=== PATIENT | female | born 1955 | race Caucasian/White ===

== ENCOUNTER 2016-03-23 02:59 | Emergency (ER) | payer MEDICARE ==
[2016-03-23 02:59] VITALS: BMI 31.7
[2016-03-23 03:27] VITALS: BP 119/57; PULSE 82; TEMP 97.9
[2016-03-23 04:29] LABS: LEUKOCYTES/URINE 2+ (NEGATIVE); NITRITE/URINE POS (NEGATIVE); RBC/URINE 0-2 (0-5); URINE OCCULT BLOOD NEG (NEG/TRACE); WBC/URINE 20-30 (0-5)
--- NOTE | 2016-03-23 04:49 | EDPRACDOC ---
- General Information Chief Complaint: Abdominal Pain Stated Complaint: LOWER LT ABD PAIN Time Seen by Provider: 03/23/16 04:49 Information Source: Patient, Family Mode Of Arrival: Car Home Medications: Home Medications Mesalamine [Lialda] 2.4 gm PO BID 02/28/15 Zolpidem Tartrate [Ambien] 10 mg PO HS PRN 02/28/15 Lorazepam 1 mg PO TID 01/03/16 Cefdinir [Omnicef] 300 mg PO BID #20 cap 03/23/16 Furosemide [Lasix] 20 mg PO DAILY 03/23/16 Pravastatin [Pravachol] 80 mg PO HS 03/23/16 Sertraline HCl 150 mg PO DAILY 03/23/16 Allergies/Adverse Reactions: Allergies Allergy/AdvReac Type Severity Reaction Status Date / Time acetaminophen [From Percocet] Allergy Confusion Verified 03/23/16 03:27 codeine Allergy Anaphylaxis Verified 03/23/16 03:27 * oxycodone [From Percocet] Allergy Confusion Verified 03/23/16 03:27 - History of Present Illness Onset: chronic HPI: LLQ pain x months, is kitty tonight requesting answers for why she is hurting, and has ongoing loose stools. She is followed by GI, has had endoscopy, she is followed by PCP has had xrays, is followed by urology has had cystoscopy, folowed by [employer] with US and no apparent etiology. pain is sharp, constant. no F/C. no N/V. She does have dysuria x few days. Pain Severity: Moderate Pain Radiation: Reports: No Radiation : No Female Abdominal History: Reports: UTI Oral Intake: Normal Urinary Output: Normal ED Past Medical History - History Reviewed Yes Nurses notes reviewed and agree except as marked - Patient Medical History Neurological History: Comment Only: Multiple Sclerosis (2009) Psychological History: Denies: Depression Surgical History: Denies: Hysterectomy - Social Medical History Smoking Status: Never smoker EDM Review of Systems - Review of Systems ROS Negative Except as Marked: Yes All systems reviewed and were negative except as marked - Physical Exam Constitutional: Alert (Awake), No apparent distress Oriented to: Time, Person, Place Last recorded Vital Signs: Last Vital Signs Temp 97.9 F 03/23/16 03:24 Pulse 82 03/23/16 03:24 Resp 20 03/23/16 03:24 BP 119/57 L 03/23/16 03:24 Pulse Ox 100 03/23/16 03:24 Oxygen Pulse Oxygen Saturation 100 O2 Device Room Air Oxygen Flow Rate Fraction of Inspired Oxygen ( FIO2) - HEENT Head: Normal ( normocephalic) Eye Exam: Normal (PERRL, EOMI, Sclera white) Oropharynx: Normal (Pharynx:Moist without exudate,Gums-no swelling) Tympanic Membrane: Normal ENT EAC: Normal TMJ: Normal Nose: No Symptoms Reported (septum midline) Neck: Normal (FROM, trachea at midline) - Respiratory/Cardiovascular Respiratory: Normal - CTA (BBS clear to auscultation without adventitious sounds ) Cardiovascular: Normal (RRR without murmur, gallop or rub) - GI Auscultation: Normal (NABS) Palpation: Normal (Soft,No rebound or guarding, non distended) Tenderness: LLQ Camarena's Sign: Negative - Musculoskeletal Back: Normal (Non-Tender) Extremities: Normal (Normal tone, Pulses 2+ No cyanosis or edema, FROM) - Integumentary Skin: Normal, Warm, Dry Lymphatics: Normal (no adenopathy) - Neurologic Memory Impaired: Normal Motor Function: Normal (Normal tone, Pulses 2+ No cyanosis or edema, FROM) Cranial Nerve: Normal (CN II-X11 intact sensation, strength 5/5) Cerebellar: Normal Mood Description: Normal Perception: Normal - Re-evaluation Re-evaluation 1 Re-evaluation Time: 04:53 (plan ABX for UTI. PT declines any blod work or imaging, prefers to be discharged and f/u GI DR De La Torre. ) - Results Urine Color Yellow 03/23/16 04:10 Urine Clarity Sl cldy 03/23/16 04:10 Urine pH 6.0 (5.0-8.0) 03/23/16 04:10 Ur Specific [place] 1.020 (1.003-1.035) 03/23/16 04:10 Urine Protein Neg (NEG/TRACE) 03/23/16 04:10 Urine Glucose (UA) Neg (NEGATIVE) 03/23/16 04:10 Urine Ketones Neg (NEGATIVE) 03/23/16 04:10 Urine Occult Blood Neg (NEG/TRACE) 03/23/16 04:10 Urine Nitrite Pos (NEGATIVE) H 03/23/16 04:10 Urine Bilirubin Neg (NEGATIVE) 03/23/16 04:10 Urine Urobilinogen <2.0 MG/DL (0-1) 03/23/16 04:10 Ur Leukocyte Esterase 2+ (NEGATIVE) H 03/23/16 04:10 Urine RBC 0-2 (0-5) 03/23/16 04:10 Urine WBC 20-30 (0-5) H 03/23/16 04:10 Ur Epithelial Cells 1+ 03/23/16 04:10 Urine Bacteria Few (NEG/FEW) 03/23/16 04:10 Hyaline Casts 2-5 (0-2) H 03/23/16 04:10 Urine Mucus Occ (NEG/OCC) 03/23/16 04:10 Lab Results 03/23/16 04:10 Urine Color Yellow Urine Clarity Sl cldy Urine pH 6.0 Ur Specific Cent[place] 1.020 Urine Protein Neg Urine Glucose (UA) Neg Urine Ketones Neg Urine Occult Blood Neg Urine Nitrite Pos H Urine Bilirubin Neg Urine Urobilinogen <2.0 Ur Leukocyte Esterase 2+ H Urine RBC 0-2 Urine WBC 20-30 H Ur Epithelial Cells 1+ Urine Bacteria Few Hyaline Casts 2-5 H Urine Mucus Occ Decision Time to Discharge: 04:54 - Departure Yes I personally saw and evaluated the patient. Disposition: Home Condition: Stable Final Diagnosis: Abdominal pain Instructions: Acute Abdominal Pain (ED) Education/Counseling Given Regarding: Diagnosis, Follow Up Referrals: Eamon Deshpande II, MD [Primary Care Provider] - One Week Prescriptions: New Cefdinir [Omnicef] 300 mg PO BID #20 cap No Action Zolpidem Tartrate [Ambien] 10 mg PO HS PRN PRN Reason: Insomnia Or Sleep Mesalamine [Lialda] 2.4 gm PO BID Lorazepam 1 mg PO TID Pravastatin [Pravachol] 80 mg PO HS Furosemide [Lasix] 20 mg PO DAILY Sertraline HCl 150 mg PO DAILY Additional Instructions: return any time you change your mind regarding further evaluation including blood work and imaging to further evaluate your symptoms.
== END 2016-03-23 05:27 | disposition home or self-care (01) ==
LOC: ED 02:59
DX: R10.32 Left lower quadrant pain (principal)
CPT/HCPCS: 81001; 87086; 99282